=== PATIENT | female | born 1940 | race Caucasian/White ===

== ENCOUNTER 2019-09-20 09:08 | Emergency (ER) | payer MEDICARE, OTHER ==
[~2019-09-20] VITALS: Ht 157.5 cm; Wt 68.0 kg
--- NOTE | 2019-09-20 09:34 | NUR ---
Dr. Swift at bedside for MSE
[2019-09-20] MEDS ORDERED: IBUPROFEN 600 MG TABLET ONE (10:14)
[2019-09-20] MEDS ORDERED: IBUPROFEN 600 MG TABLET PO ONE (10:15)
--- NOTE | 2019-09-20 10:15 | NUR ---
Patient discharged to home in stable condition. Written and verbal after care instructions given with son at bedside. Patient's son verbalizes understanding of instructions. Stressed follow up or return to ER for worsening s/s. Patient able to ambulate to wheelchair with assistance. Patient able to ambulate to son's car outside of ER
[2019-09-20 10:18] VITALS: BP 142/83
== END 2019-09-20 10:15 | disposition home or self-care (01) ==
LOC: ER 09:08
DX: M25.571 Pain in right ankle and joints of right foot (principal); W22.8XXA Striking against or struck by other objects, initial encounter; Y92.89 Other specified places as the place of occurrence of the external cause; E11.9 Type 2 diabetes mellitus without complications
CPT/HCPCS: 73610; A4663